=== PATIENT | female | born 1990 | race Caucasian/White ===

== ENCOUNTER 2018-08-20 08:41 | Emergency (ER) | payer OTHER ==
[~2018-08-20] VITALS: Ht 160 cm; Wt 90.7 kg
[2018-08-20 08:43] VITALS: Ht 160 cm; Wt 90.7 kg
[2018-08-20 09:38] LABS: BASOPHIL % 0.3 % (0-2); PLATELET COUNT 336 x10^3mcL (130-400); RED CELL DISTRIBUTION WIDTH 13.5 % (11.5-14.5)
[2018-08-20 09:47] LABS: CHLORIDE SERUM 106 mmol/L (98-107); CREATININE SERUM 0.8 mg/dL (0.6-1.0); GFR1 > 60 mL/min; GLUCOSE SERUM 109 mg/dL (74-106); POTASSIUM SERUM 4.7 mmol/L (3.5-5.1); SODIUM SERUM 141 mmol/L (136-145)
[2018-08-20 09:52] LABS: ALBUMIN 3.2 g/dL (3.4-5.0); ALKALINE PHOSPHATASE 49 U/L (46-116); ALT/SGPT 43 U/L (14-59); AST/SGOT 17 U/L (15-37); BILIRUBIN TOTAL 0.2 mg/dL (0.20-1.00); MAGNESIUM 2.2 mg/dL (1.8-2.4); TOTAL PROTEIN, SERUM 7.2 g/dL (6.4-8.2)
[2018-08-20 10:20] LABS: UA SPECIFIC GRAVITY 1.025 (1.005-1.035); microscopic required? YES; urine erythrocyte 1+ (NEGATIVE)
[2018-08-20 10:25] LABS: AMPHETAMINE QUAL UR NONE DETECTED (See below)
[2018-08-20 11:46] VITALS: BP 137/88
== END 2018-08-20 11:46 | disposition home or self-care (01) ==
LOC: ED 08:41
PROVIDERS: Emergency Medicine
DX: G40.909 Epilepsy, unspecified, not intractable, without status epilepticus (principal); E46 Unspecified protein-calorie malnutrition; E66.9 Obesity, unspecified; Z68.35 Body mass index [BMI] 35.0-35.9, adult; Z88.2 Allergy status to sulfonamides
CPT/HCPCS: 36415; 82962; G0480